=== PATIENT | male | born 1965 | race Caucasian/White ===

== ENCOUNTER 2020-01-07 21:49 | Emergency (ER) | payer OTHER ==
[~2020-01-07] VITALS: Ht 188 cm; Wt 81.6 kg
--- NOTE | 2020-01-07 21:50 | NUR ---
Dr. Tya at bedside for MSE.
[2020-01-07 22:07] LABS: *BILIRUBIN,URIN NEGATIVE (NEGATIVE); *BLOOD, URINE 2+ (NEGATIVE); *CLARITY,URINE CLOUDY (CLEAR); *COLOR,URINE YELLOW (YELLOW); *KETONES,URINE NEGATIVE (NEGATIVE); *UROBILINOGEN,URINE 0.2 E.U./dl (NORMAL); LEUKOCYTE ESTERASE ,URINE 1+ (NEGATIVE); NITRITE, URINE NEGATIVE (NEGATIVE); PH,URINE 8.5 (5.0-8.0); UGLUCOSE NEGATIVE (NEGATIVE)
[2020-01-07] MEDS ORDERED: SULFAMETH/TRIMETH 800/160 MG TABLET PO ONE (22:15)
[2020-01-07] MEDS ORDERED: SULFAMETH/TRIMETH 800/160 MG TABLET ONE (22:26)
--- NOTE | 2020-01-07 22:44 | NUR ---
Patient cleared for discharge to home by doctor. Written and verbal after care instructions given. Patient verbalizes understanding of instructions. Patient is a homeless patient. Patient given list of available shelters in surrounding area. Refuses offer of [facility] placement. Transportation requested and [facility] called [phone] per dye house supervisor's approval and taxi voucher on hand. Stable and resting in bed at this time, while waiting for the ride.
[2020-01-07] MEDS ORDERED: ACETAMINOPHEN 325 MG TABLET PO ONE (23:30)
[2020-01-07] MEDS ORDERED: ACETAMINOPHEN 325 MG TABLET ONE (23:37)
[2020-01-07 23:48] LABS: BACTERIA,URINE MANY /HPF (NONE SEEN); SQUAMOUS EPITHELIAL CELL,UR FEW /HPF (NONE SEEN); WBC,URINE 50-80 /HPF (0-3)
--- NOTE | 2020-01-07 23:59 | NUR ---
Taxi for pt arrived. Pt ambulated out of ED in steady gait and stable vital signs to taxi ride to home.
[2020-01-08] VITALS: BP 110/60
== END 2020-01-07 23:55 | disposition home or self-care (01) ==
LOC: ER 21:51
DX: N39.0 Urinary tract infection, site not specified (principal); N18.6 End stage renal disease; Z99.2 Dependence on renal dialysis; Z59.0 Homelessness; Z93.6 Other artificial openings of urinary tract status; Z90.6 Acquired absence of other parts of urinary tract; Z93.2 Ileostomy status
CPT/HCPCS: 87086; A4663

== ENCOUNTER 2020-01-08 11:21 | Emergency (ER) | payer OTHER ==
[~2020-01-08] VITALS: Ht 188 cm; Wt 79.4 kg
[~2020-01-08 11:21] MED LIST: ACETAMINOPHEN 325 MG TABLET ONE; SULFAMETH/TRIMETH 800/160 MG TABLET ONE
--- NOTE | 2020-01-08 11:35 | NUR ---
Patient ambulating with steady gait. A&O x4. patient c/o urinary discomfort and medication refill. Patient was seen in the ED last night for same complaint and patient requesting for prescription to be refilled d/t patient losing prescription.
--- NOTE | 2020-01-08 11:40 | NUR ---
Dr. Davis at bedside for MSE
--- NOTE | 2020-01-08 11:56 | NUR ---
Patient discharged to home in stable condition. Written and verbal after care instructions given. Patient verbalizes understanding of instructions. Stressed follow up or return to ER for worsening s/s. Patient ambulating with steady gait. NAD noted
[2020-01-08] MEDS ORDERED: ACETAMINOPHEN 325 MG TABLET PO ONE (12:00)
[2020-01-08] MEDS ORDERED: SULFAMETH/TRIMETH 800/160 MG TABLET PO ONE (12:00)
[2020-01-08 12:02] VITALS: BP 127/83
== END 2020-01-08 11:56 | disposition home or self-care (01) ==
LOC: ER 11:21
DX: N39.0 Urinary tract infection, site not specified (principal); I12.0 Hypertensive chronic kidney disease with stage 5 chronic kidney disease or end stage renal disease; N18.6 End stage renal disease; Z99.2 Dependence on renal dialysis; Z90.6 Acquired absence of other parts of urinary tract; Z93.6 Other artificial openings of urinary tract status; Z91.14 Patient's other noncompliance with medication regimen
CPT/HCPCS: A4663

== ENCOUNTER 2020-01-12 17:57 | Emergency (ER) | payer OTHER ==
[~2020-01-12] VITALS: Ht 188 cm; Wt 79.4 kg
--- NOTE | 2020-01-12 18:15 | NUR ---
Patient BIB [facility] for abdominal pain with nausea, vomitting and diarrhea. Per pt he vomitted once yesterday and had several episodes of diarrhea. Per [facility] pt is homeless and lives in his truck. Pt noted with dialysis catheter to Left side of chest, states he recieveds dialysis on Monday, and Monday and cannot remember the last time he did his dialysis. Pt also c/o of chest pain in middle of chest non-radiating, EKG done and given to Dr. Davis. Pt also noted to have urostomy on Rt lower abdomen. Placed in RM 3, attached to bedside monitor.
[2020-01-12 19:01] LABS: BASOPHILS # (AUTO) 0.1 K/uL (0.0-8.0); BASOPHILS % (AUTO) 0.6 % (0.0-2.0); HEMOGLOBIN 7.6 g/dL (12.5-16.3); LYMPHOCYTES # (AUTO) 0.8 K/uL (20.0-40.0); LYMPHOCYTES % (AUTO) 7.8 % (20.5-51.5); MEAN CORPUSCULAR HEMOGLOBIN 31.6 uug (23.8-33.4); MEAN CORPUSCULAR HGB CONC 35 g/dL (32.5-36.3); MEAN CORPUSCULAR VOLUME 91.1 fL (73.0-96.2); MONOCYTES # (AUTO) 1.2 K/uL (2.0-10.0); MONOCYTES % (AUTO) 12.5 % (0.0-11.0); NEUTROPHILS # (AUTO) 7.6 K/uL (1.8-8.9); NEUTROPHILS % (AUTO) 79.1 % (38.5-71.5); PLATELET COUNT (AUTO) 183 K/uL (152-348); WHITE BLOOD COUNT (AUTO) 9.6 K/uL (3.6-10.2)
--- NOTE | 2020-01-12 19:05 | NUR ---
Report given to Mehdi REYES, endorsed IV insertion.
[2020-01-12 19:06] LABS: RED BLOOD CELL COUNT(AUTO) 2.42 MIL/uL (4.06-5.63)
[2020-01-12 19:11] LABS: BILIRUBIN,DIRECT 0.2 mg/dL (0.0-0.2); BILIRUBIN,TOTAL 0.5 mg/dL (0.2-1.0); POTASSIUM 4.7 mmol/L (3.5-5.1); TOTAL PROTEIN, SERUM 7.7 g/dL (6.4-8.2)
[2020-01-12 19:13] LABS: CREATININE 12.7 mg/dL (0.6-1.3)
[2020-01-12] MEDS ORDERED: ONDANSETRON 4 MG/2 ML VIAL IV ONE (19:45)
[2020-01-12] MEDS ORDERED: IV NORMAL SALINE 1000 ML BAG IV ONE (19:45)
[2020-01-12] MEDS ORDERED: ONDANSETRON 4 MG/2 ML VIAL ONE (19:56)
[2020-01-12 20:00] LABS: *BILIRUBIN,URIN NEGATIVE (NEGATIVE); *BLOOD, URINE 1+ (NEGATIVE); *CLARITY,URINE SLIGHTLY CLOUDY (CLEAR); *COLOR,URINE YELLOW (YELLOW); *KETONES,URINE NEGATIVE (NEGATIVE); *UROBILINOGEN,URINE 0.2 E.U./dl (NORMAL); LEUKOCYTE ESTERASE ,URINE 2+ (NEGATIVE); NITRITE, URINE NEGATIVE (NEGATIVE); PH,URINE 8.5 (5.0-8.0); UGLUCOSE NEGATIVE (NEGATIVE)
[2020-01-12] MEDS ORDERED: CEFTRIAXONE 1 G in IV DEXTROSE 5% 50 ML IV ONE (20:00)
[2020-01-12] MEDS ORDERED: CEFTRIAXONE 1 G VIAL ONE (20:40)
--- NOTE | 2020-01-12 21:02 | NUR ---
Patient has had 2 episodes of diarrhea within a span of 10 minutes. Stool collected. ERMD notified.
--- NOTE | 2020-01-12 21:24 | NUR ---
Patient does not wish to proceed with medical care recommended by Dr. Gonzales. Patient given information related to possible complications, up to and including , which could occur as a result of leaving the hospital at this time. Patient verbalizes understanding of risks involved due to leaving against medical advice. Patient has signed AMA form. IV removed. Catheter intact and site benign. Pressure and 4x4 gauze applied to site. No bleeding noted.
--- NOTE | 2020-01-12 21:24 | NUR ---
patient states he wishes to leave AMA, EKG not done at this time
--- NOTE | 2020-01-12 21:35 | NUR ---
Patient states he is not homeless.
[2020-01-12 21:50] VITALS: BP 118/69
[2020-01-12 23:16] LABS: BACTERIA,URINE NONE SEEN /HPF (NONE SEEN); SQUAMOUS EPITHELIAL CELL,UR FEW /HPF (NONE SEEN)
== END 2020-01-12 21:51 | disposition left against medical advice (07) ==
LOC: ER 17:57
DX: N39.0 Urinary tract infection, site not specified (principal); N18.6 End stage renal disease; Z99.2 Dependence on renal dialysis; Z90.6 Acquired absence of other parts of urinary tract; E87.1 Hypo-osmolality and hyponatremia; R53.1 Weakness; R19.7 Diarrhea, unspecified; R11.2 Nausea with vomiting, unspecified; Z20.828 Contact with and (suspected) exposure to other viral communicable diseases; Z95.9 Presence of cardiac and vascular implant and graft, unspecified; Z93.6 Other artificial openings of urinary tract status
CPT/HCPCS: 36415; 74176; 80048; 80076; 81001; 83605; 84484; 85025; 86625; 87015; 87040 ×2; 87046; 87086; 87426; 87427; 87493; 87899; 93005; 96361; 96365; 96375; 99284; J0696; J2405; 70030-TC; 87077; A4663